=== PATIENT | male | born 1970 | race African-American/Black ===

== ENCOUNTER 2023-12-07 23:49 | Emergency (ER) | payer MEDICAID ==
[~2023-12-07] VITALS: Ht 170.2 cm; Wt 59.0 kg
[2023-12-08 00:07] VITALS: O2SAT 98
[2023-12-08] MEDS: MORPHINE SULFATE 4 MG/ML INJ (FOR IV/IM USE) IV STA (02:04)
[2023-12-08] MEDS: ONDANSETRON HCL 4MG/2ML INJ IV STA (02:04)
[2023-12-08] MEDS: DEXAMETHASONE 10 MG/ML VIAL IV ONE (02:15)
[2023-12-08 04:30] VITALS: BP 126/53; PULSE 65; RESP 14; TEMP 97.9
== END 2023-12-08 04:40 | disposition home or self-care (01) ==
LOC: ER 23:49
DX: M54.50 Low back pain, unspecified (principal); M48.061 Spinal stenosis, lumbar region without neurogenic claudication; F31.9 Bipolar disorder, unspecified; F20.9 Schizophrenia, unspecified
CPT/HCPCS: 99285; 96374; 96375; J1100; J2405; J2270; Z7610 ×3

== ENCOUNTER 2024-01-04 19:38 | Emergency (ER) | payer MEDICAID ==
[2024-01-04] MEDS: ACETAMINOPHEN 325MG TABLET PO ONE (20:36)
[2024-01-04 23:04] VITALS: BP 143/68; PULSE 54; RESP 16; TEMP 98.8
[2024-01-05] MEDS ORDERED: BACL20TA MT (05:38)
[2024-01-05] MEDS ORDERED: NAPR275T96 MT (05:38)
[2024-01-05] MEDS ORDERED: MED4 MT (05:38)
== END 2024-01-04 23:07 | disposition home or self-care (01) ==
LOC: ER 19:38
DX: S02.832A Fracture of medial orbital wall, left side, initial encounter for closed fracture (principal); F20.9 Schizophrenia, unspecified; F31.9 Bipolar disorder, unspecified; W01.0XXA Fall on same level from slipping, tripping and stumbling without subsequent striking against object, initial encounter; Y93.89 Activity, other specified; Y92.89 Other specified places as the place of occurrence of the external cause; Y99.8 Other external cause status
CPT/HCPCS: 99284

== ENCOUNTER 2024-01-05 01:14 | Emergency (ER) | payer MEDICAID ==
[~2024-01-05] VITALS: Ht 170.2 cm; Wt 58.0 kg
[2024-01-05 01:29] VITALS: TEMP 98.3; O2SAT 100
[2024-01-05] MEDS: KETOROLAC 60MG/2ML VIAL IM ONE (04:20)
[2024-01-05] MEDS ORDERED: NAPR275T96 MT (05:38)
[2024-01-05] MEDS ORDERED: MED4 MT (05:38)
[2024-01-05] MEDS ORDERED: BACL20TA MT (05:38)
[2024-01-05 05:56] VITALS: BP 129/65; PULSE 77; RESP 18
== END 2024-01-05 05:55 | disposition home or self-care (01) ==
LOC: ER 01:43
DX: R10.2 Pelvic and perineal pain (principal); F31.9 Bipolar disorder, unspecified; F20.9 Schizophrenia, unspecified
CPT/HCPCS: 72170; 96372; 99283; J1885; Z7610